=== PATIENT | male | born 1975 | race Asian ===

== ENCOUNTER 2023-11-06 11:32 | Emergency (ER) | payer OTHER, SELFPAY ==
[2023-11-06 11:35] VITALS: BP 174/105
[2023-11-06 11:58] VITALS: BMI 29.1
[2023-11-06 12:03] VITALS: BP 139/96
--- NOTE | 2023-11-06 12:23 | ED.GENMED ---
History of Present Illness
General
Chief Complaint: Headache
Source: patient
Time Seen by Provider: 11/06/23 11:59
History of Present Illness
History of Present Illness:
48-year-old male with past medical history of hypertension presenting to the emergency department for evaluation reporting he has had a posterior headache which she describes as like a burning sensation to the back of his head accompanied with
bilateral tinnitus, bilateral blurred vision and fatigue. Patient notes that he has not been sleeping very much over the 3 days noting that his upstairs neighbor was very loud throughout the weekend and playing loud music so he believes that this
might be the cause of some of his symptoms. Patient states that he normally does not have any issues with headaches. Denies any fevers or infectious symptoms. No focal weakness or numbness, chest pain or shortness of breath, abdominal pain,
rashes or any other concerns. Patient did note a significantly elevated blood pressure while in triage and that he took his valsartan today as normal. Social history was noncontributory.
Past History
Past History
ED Past Medical History: HTN
ED Past Surgical History: None
Social History
Tobacco: Non-smoker
Alcohol: None
Drug: None
Personal: Single
Living: alone
Employment: Employed
Review of Systems
Review of Systems
All Other Systems: ROS reviewed and negative except as documented in HPI and ROS
Phy Exam
Physical Exam
Physical Exam:
GENERAL: Alert , in no apparent distress
HEAD: NCAT
EYE: pupils equal and reactive, pupils 4mm b/l
NECK: Supple, no significant adenopathy, no midline ttp, no meningismus
ENT: o/p clr, mmm.
CARDIAC: Tachycardic rate and rhythm, no murmur
LUNGS: Clear breath sounds bilaterally, no acute respiratory distress, no wheezes/rales/rhonchi
ABDOMEN: Soft, without focal tenderness, no r/g, no cvat
NEUROLOGICAL: Alert and oriented, no focal neuro deficits, CAMPOS x 4, no ataxia, no dysmetria
SKIN: Warm and dry, skin intact.
MUSCULOSKELETAL: well perfused.
PSYCH: Normal and appropriate interaction.
Scores
Heart Failure Risk
Heart Failure Risk Score: Not Applicable
Heart Score for Chest Pain Patients
STEMI patient?: Not applicable
Withdrawal Assessment of Alcohol
Withdrawal Assessment Completed?: Not applicable
Course
Orders/Labs/Results
Orders:
Orders
11/06/23 12:05
CT Head W/o Iv Contrast Urgent
Comment:
Reason For Exam: headache, HTN
0.9% Sodium Chloride 1000 ml [Nss] 1,000 ml IV BOLUS
Dexamethasone Sod Phosphate [Decadron] 10 mg IV NOW STA
Diphenhydramine [Benadryl] 25 mg IV NOW STA
Metoclopramide [Reglan] 10 mg IM NOW STA
11/06/23 12:24
Basic Metabolic Panel Urgent
Complete Blood Count/With Diff Urgent
11/06/23 12:38
Metoclopramide [Reglan] 10 mg IV NOW STA
Abnormal Lab Results
11/06/23
12:24
RBC 4.46 L 10^6/uL
(4.70-6.10)
MCH 32.1 H pg
(27.0-31.0)
Absolute Lymphs (auto) 1.0 L 10^3/uL
(1.2-3.4)
Immature Gran % 0.6 H %
(0-0.5)
Lymphocytes % 20.0 L %
(20.5-51.1)
Glucose 105 H mg/dl
(70-99)
11/06/23 12:24
11/06/23 12:24
Vital Signs
Initial and Last Documented VS:
Initial Vital Signs
Temp Pulse Resp BP Pulse Ox
97.8 F 129 20 174/105 100
11/06/23 11:35 11/06/23 11:35 11/06/23 11:35 11/06/23 11:35 11/06/23 11:35
Last Documented Vital Signs
Temp Pulse Resp BP Pulse Ox
97.8 F 92 18 128/95 100
11/06/23 11:35 11/06/23 14:11 11/06/23 14:11 11/06/23 14:11 11/06/23 14:11
MDM/Problems Addressed
Differential Diagnosis Includes:
HTN urgency/emergency, ICH, tension headache, migraine headache, less concern for infectious etiology
MDM/Problems Addressed:
48-year-old male presenting to the emergency department for evaluation of posterior headache x 3 days, arrives to the ER fairly hypertensive at 174/105, on repeat was 139/96. Still has mild tachycardia. Patient believes symptoms are related to
upstairs neighbor causing the symptoms. No fevers or infectious symptoms. Has a history of hypertension but reports good compliance with his valsartan. Will obtain CT scan of the head and treat headache with migraine cocktail. Labs ordered.
Disposition pending
Chronic conditions affecting care: HTN
Acute Exacerbation and/or Progression of Chronic Illness: HTN
*Radiology
Radiology exam reviewed: radiology read reviewed
*Pulse Oximetry
Patient hypoxic: no
*Manager Pet Interpretation
Rate: normal
Rhythm: sinus
*Critical Care Note
Total Time (30-74mins, 75-104mins- exclusive of procedures): Not Applicable
Patient Management
Escalation/DeEscalation of care consider admission/obs:
Patient CT and labs unremarkable. BP remains much improved. Stable for d/c home and aware of return precautions
ED Attending Note
-
Portions of this chart may have been created with voice recognition software.� Occasional wrong word or��sound alike� substitutions may have occurred due to the inherent limitations of voice recognition software.
Discharge Plan
Departure
Patient Disposition: Home (Routine Discharge)
Date of Disposition: 11/06/23
Time of Disposition: 13:51
Patient with high blood pressure during this ER visit?: Yes
Discharge Problem:
Headache
Instructions: Headache, Adult (DC)
Prescriptions:
No Action
lisinopril 5 MG tablet
5 mg PO DAILY Qty: 30 0RF
metaxalone [Skelaxin] 800 MG tablet
800 mg PO TIDPRN PRN (Reason: back pain) Qty: 15 0RF
Referrals:
NONE,* [Family Provider] -
Interventions
Interventions:
*Risk Screen - Suicide Last Done: 11/06/23 11:58
*General Assessment Last Done: 11/06/23 11:58
*Neglect/Abuse Screening Last Done: 11/06/23 11:58
*Nursing Disposition Last Done: 11/06/23 14:13
ED- Neurological Assessment Last Done: 11/06/23 11:58
Discharge Date and Time
Discharge Date/Time: 11/06/23 14:16
Print Language: ITALIAN
[2023-11-06] MEDS: BENADRYL 25 MG IV (12:30)
[2023-11-06] MEDS: DECADRON 10 MG IV (12:30)
[2023-11-06] MEDS: NSS 1000 IV (12:33)
[2023-11-06] MEDS: REGLAN 10 MG IV (12:39)
[2023-11-06 12:58] LABS: % Basophils 0.8 % (0-2); % Eosinophils 0.2 % (0-6); % Immature Granulocytes 0.6 % (0-0.5); % Neutrophils 69.4 % (42.2-75.2); Absolute Monocytes 0.5 10^3/uL (0.1-0.6); Absolute Neutrophils 3.5 10^3/uL (1.4-6.5); Hematocrit 39.8 % (39.0-52.0); Hemoglobin 14.3 g/dL (13.0-18.0); Mean Corp Hgb Conc. 35.9 g/dL (33.0-37.0); Mean Corpuscular Hgb 32.1 pg (27.0-31.0); Mean Corpuscular Volume 89.2 fL (80.0-94.0); Mean Platelet Volume 10.2 fL (7.4-10.4); Nucleated Red Blood Cells % 0 % (-); Platelet Count 214 10^3/uL (130-400); Red Blood Cell Count 4.46 10^6/uL (4.70-6.10); Red Cell Dist. Width 11.9 % (11.5-14.5)
[2023-11-06 13:10] LABS: Blood Urea Nitrogen 15 mg/dl (9-20); Calcium 9.4 mg/dl (8.4-10.2); Carbon Dioxide 23 mmol/L (22-30); Chloride 103 mmol/L (98-107); Estimated Creatinine Clearance 100 ml/min; Glucose 105 mg/dl (70-99); Sodium 137 mmol/L (135-145); eGFR > 60.00
[2023-11-06 14:11] VITALS: BP 128/95
== END 2023-11-06 14:16 | disposition home or self-care (01) ==
LOC: EMR 11:32
PROVIDERS: Physician Assistant Medical; EMERGENCY PHYSICIAN Emergency Medicine
DX: R51.9 Headache, unspecified (principal); I10 Essential (primary) hypertension
CPT/HCPCS: 99284; 96374; 96375 ×2; 96361; 70450; 80048; 85025